=== PATIENT | female | born 1975 | race Two or more races ===

== ENCOUNTER 2016-10-08 02:39 | Emergency (ER) | payer MEDICAID, OTHER ==
[~2016-10-08] VITALS: Ht 152.4 cm; Wt 65.8 kg
[~2016-10-08 02:39] MED LIST: ACETAMINOPHEN-1 EAC1 ORAL; BACTRIM DS TAB1 EAC1 ORAL; BACTRIM-DS1 EA ORAL; CLONIDINE 0.2M0.2 MG PO; CYCLOBENZAPRINE10 MG ORAL; DOXYCYCLINE MO100 MG ORAL; KEFLEX500 MG ORAL; NORCO 5-325 TA1 EACH ORAL; NORCO 5-325 TA1 EACH PO; PERCOCET 5-3251 EACH ORAL; TRAMADOL HCL50 MG ORAL; TYLENOL EXTRA500 MG ORAL
[2016-10-08 03:29] VITALS: BP 200/120
[2016-10-08] MEDS ORDERED: Bactrim DS (160mg/800mg) tab ORAL ONE (04:00)
[2016-10-08] MEDS ORDERED: NORVASC10 MG ORAL (04:00)
[2016-10-08] MEDS ORDERED: BACTRIM DS TAB1 EAC1 ORAL (04:00)
--- NOTE | 2016-10-08 04:00 | Emergency Room Report ---
History of Present Illness General Chief Complaint: Skin Rash/Abscess Source: Patient Present Illness HPI Is a 41-year-old female with history hypertension for which he hasn't taken medicine for over a year. She also has frequent abscess. She presents with 2 day history of right axilla abscess. Painful. 10 out of 10. She been trying to put warm compress to to see if it would burst. No fever chills denies nausea no vomiting. No other complaint. Allergies: Coded Allergies: IBUPROFEN (Verified Allergy, Unknown, HIVES, 10/11/11) Patient History Past Medical History: see triage record, old chart reviewed, HTN Past Surgical History: other Pertinent Family History: none Social History: Denies: smoking Last Menstrual Period: 3 WEEKS AGO Now: No Immunizations: other Reviewed Nursing Documentation: PMH: Agreed, PSxH: Agreed Nursing Documentation-PMH Hx Cardiac Problems: Yes - high cholesterol Hx Hypertension: Yes Hx Cancer: No Hx Gastrointestinal Problems: Yes - Abdominal pain and R/O acute appendicitis Hx Neurological Problems: No Review of Systems Eye: Denies: blurred vision, eye pain ENT: Denies: ear pain, nose congestion, throat swelling Respiratory: Denies: cough, shortness of breath Cardiovascular: Denies: chest pain, palpitations Gastrointestinal: Denies: abdominal pain, diarrhea, nausea, vomiting Musculoskeletal: Denies: back pain, joint pain Skin: Denies: rash Neurological: Denies: headache, numbness Endocrine: Denies: increased thirst, increased urine Hematologic/Lymphatic: Denies: easy bruising All Other Systems: negative except mentioned in HPI Physical Exam Vital Signs Date Time Temp Pulse Resp B/P Pulse Ox O2 Delivery O2 Flow Rate FiO2 10/08/16 03:03 97.7 113 18 182/124 98 Room Air vitals with hypertension Sp02 EP Interpretation: reviewed, normal General Appearance: well appearing, no apparent distress, alert Head: normocephalic, atraumatic Eyes: bilateral eye EOMI, bilateral eye PERRL ENT: hearing grossly normal, normal pharynx Neck: full range of motion, supple, no meningismus Respiratory: chest non-tender, lungs clear, normal breath sounds Cardiovascular #1: regular rate, rhythm, no murmur Gastrointestinal: normal bowel sounds, non tender, no mass, no organomegaly, no bruit, non-distended Musculoskeletal: back normal, gait/station normal, normal range of motion Psychiatric: mood/affect normal Skin: warm/dry, other - 2 cm abscessto the right axilla. Tender to palpation. No erythema. Procedures Incision and Drainage Incision and Drainage : Consent: Verbal Site: Right axilla Blade Size: 11 I & D Procedure: betadine prep, sterile drapes applied, sterile dressing applied Wound Location: upper extremity Anesthesia: 1% Lidocaine Volume Anesthetic (ccs): 2 Patient Tolerated: Well Complications: None Progress Area clean with Betadine. Local anesthetic 1% lidocaine. I made a 2 cm incision. There was small amount of purulent discharge. Loculated area broken up. Wound irrigated. There was small so I did not packed it. Medical Decision Making Diagnostic Impression: Primary Impression: Abscess of right axilla ER Course Issue with abscess of the right axilla. No evidence of deep infection. No evidence of necrotizing fasciitis. This most likely MRSA. We'll discharge home. She felt better. No evidence of endorgan damage. She is asymptomatic from her high blood pressure. Will put her back on medication. Last Vital Signs Date Time Temp Pulse Resp B/P Pulse Ox O2 Delivery O2 Flow Rate FiO2 10/08/16 03:29 97.7 18 200/120 98 Room Air 10/08/16 03:03 113 Status: improved Disposition: HOME, SELF-CARE Condition: Stable Scripts Amlodipine Besylate (Norvasc) 10 Mg Tablet 10 MG ORAL DAILY, #90 TAB Prov: DEVIN MOREIRA M.D. 10/08/16 Trimethoprim/Sulfamethoxazole 160/800* (BACTRIM DS TABLET*) 1 Each Tablet 1 TAB ORAL Q12H, #14 TAB 0 Refills Prov: DEVIN MOREIRA M.D. 10/08/16 Referrals: [facility],REFERRING (PCP) Patient Instructions: Abscess Additional Instructions: Followup with your doctor or the clinic within 7 days for recheck the wound and also your blood pressure. Take your blood pressure medication. Return if symptom worsen. DEVIN MOREIRA M.D. October 08, 2016 04:00
[2016-10-08] MEDS ORDERED: Norco 5mg/325mg tab ORAL ONE ×2 (04:15→04:45)
[2016-10-08] MEDS ORDERED: Norco 5mg/325mg tab ONE (04:19)
[2016-10-08 04:25] VITALS: BP 175/107
[2016-10-08 04:27] VITALS: BP 175/107
== END 2016-10-08 04:30 | disposition home or self-care (01) ==
LOC: EMR 03:39
DX: L02.411 Cutaneous abscess of right axilla (principal); I10 Essential (primary) hypertension; Z88.6 Allergy status to analgesic agent
CPT/HCPCS: 10060

== ENCOUNTER 2016-11-15 11:07 | Emergency (ER) | payer OTHER ==
[~2016-11-15] VITALS: Ht 152.4 cm; Wt 65.8 kg
[~2016-11-15 11:07] MED LIST changes: +NORVASC10 MG ORAL
[2016-11-15 11:14] VITALS: BP 119/74
[2016-11-15] MEDS ORDERED: KEFLEX500 MG ORAL (11:42)
[2016-11-15] MEDS ORDERED: ACETAMINOPHEN-1 EAC1 ORAL (11:42)
[2016-11-15] MEDS ORDERED: BACTRIM DS TAB1 EAC1 ORAL (11:42)
[2016-11-15] MEDS ORDERED: Oxycodone/Acetaminophen 5-325 ORAL ONE (11:45)
[2016-11-15 11:50] VITALS: BP 119/74
--- NOTE | 2016-11-15 11:55 | Emergency Room Report ---
History of Present Illness General Chief Complaint: Skin Rash/Abscess Source: Patient Present Illness HPI [id number] [employer] patient with 5 days "rash" under right armpit. Shaves regularly. Been putting hot compress 3x a day. Denies fever/chills, DM history. Allergies: Coded Allergies: IBUPROFEN (Verified Allergy, Unknown, HIVES, 10/11/11) Patient History Past Medical History: other - Recurrent abscesses Past Surgical History: none Pertinent Family History: none Social History: Denies: alcohol use, drug use, smoking Last Menstrual Period: 11/14/16 Now: No : 1 Para: 1 Immunizations: UTD Reviewed Nursing Documentation: PMH: Agreed, PSxH: Agreed Nursing Documentation-PMH Past Medical History: No Stated History Hx Cardiac Problems: Yes - high cholesterol Hx Hypertension: Yes Hx Cancer: No Hx Gastrointestinal Problems: Yes - Abdominal pain and R/O acute appendicitis Hx Neurological Problems: No Review of Systems All Other Systems: negative except mentioned in HPI Physical Exam Vital Signs Date Time Temp Pulse Resp B/P Pulse Ox O2 Delivery O2 Flow Rate FiO2 11/15/16 11:09 98.8 101 16 117/78 100 Room Air Sp02 EP Interpretation: reviewed, normal General Appearance: normal inspection, well appearing, no apparent distress, alert Head: atraumatic ENT: normal ENT inspection, hearing grossly normal, normal voice Neck: normal inspection, full range of motion, supple, no bony tend Respiratory: normal inspection, lungs clear, normal breath sounds, no respiratory distress, no retraction, no wheezing Cardiovascular #1: regular rate, rhythm, no edema Gastrointestinal: normal inspection, normal bowel sounds, non tender, soft, no guarding, no hernia Genitourinary: no CVA tenderness Musculoskeletal: normal inspection, back normal, normal range of motion, Celestine' s Sign negative Neurologic: normal inspection, alert, oriented x3, responsive, screen making technician III-XII nml as tested, speech normal Psychiatric: normal inspection, judgement/insight normal, mood/affect normal Skin: other - Right armpit: 1cm area of induration surrounded by erythema. No fluctuance. Medical Decision Making Diagnostic Impression: Primary Impression: Cellulitis ER Course Cellulitis, early abscess of right armpit - No drainable area of fluctuance now - Analgesia given in ED - Rx Keflex, Bactrim - Continued warm compress application DC home Last Vital Signs Date Time Temp Pulse Resp B/P Pulse Ox O2 Delivery O2 Flow Rate FiO2 11/15/16 11:14 98.7 103 15 119/74 99 Room Air Status: improved Disposition: HOME, SELF-CARE Condition: Improved Scripts Acetaminophen With Codeine (T#3) (TYLENOL #3 TAB*) Y Tab 1 TAB ORAL Q8H for 7 Days, #30 TAB Prov: FRANK TAPIA M.D. 11/15/16 Cephalexin* (KEFLEX*) 500 Mg Capsule 500 MG ORAL Q6H for 7 Days, #28 CAP 0 Refills Prov: FRANK TAPIA M.D. 11/15/16 Trimethoprim/Sulfamethoxazole 160/800* (BACTRIM DS TABLET*) 1 Each Tablet 1 TAB ORAL Q12H for 7 Days, #14 TAB 0 Refills Prov: FRANK TAPIA M.D. 11/15/16 Patient Instructions: Cellulitis, [id number] Additional Instructions: - Take BOTH antibiotics until finished - Keep applying hot towel compress 3x a day to reduce pain/swelling - Take tylenol #3 for pain FRANK TAPIA M.D. Nov 15, 2016 11:54
== END 2016-11-15 12:38 | disposition home or self-care (01) ==
LOC: EMR 11:25
DX: L03.111 Cellulitis of right axilla (principal); E78.00 Pure hypercholesterolemia, unspecified; I10 Essential (primary) hypertension; Z88.6 Allergy status to analgesic agent; E11.9 Type 2 diabetes mellitus without complications
CPT/HCPCS: 99284

== ENCOUNTER 2017-01-09 18:58 | Emergency (ER) | payer MEDICAID, OTHER ==
[~2017-01-09] VITALS: Ht 152.4 cm; Wt 65.8 kg
[2017-01-09 19:18] VITALS: BP 126/87
--- NOTE | 2017-01-09 19:29 | Emergency Room Report ---
History of Present Illness General Chief Complaint: Skin Rash/Abscess Source: Patient Present Illness HPI 41 YO Female presents to the ED with 10/10 in severity localized pain , swelling , and erythema under the right axilla x 1 week. pt. has hx of abscess in that area. denies fevers or chills. Pt. denies trauma or fall. denies swelling of the arm. Pt. states tetanus is UTD. denies rash or lesions elsewhere. Denies CP , Palpitations, LOC, AMS, dizziness, Changes in Vision, Sensation, paresthesias , or a sudden severe headache. Allergies: Coded Allergies: IBUPROFEN (Verified Allergy, Unknown, HIVES, 10/11/11) Patient History Past Medical History: see triage record Past Surgical History: none Pertinent Family History: none Last Menstrual Period: 2 weeks ago Now: No Reviewed Nursing Documentation: PMH: Agreed, PSxH: Agreed Nursing Documentation-PMH Past Medical History: No History, Except For Hx Cardiac Problems: Yes - high cholesterol Hx Hypertension: Yes Hx Cancer: No Hx Gastrointestinal Problems: No Hx Neurological Problems: No Review of Systems All Other Systems: negative except mentioned in HPI Physical Exam Vital Signs Date Time Temp Pulse Resp B/P (MAP) Pulse Ox O2 Delivery O2 Flow Rate FiO2 01/09/17 19:08 98.2 98 17 126/87 100 Room Air Sp02 EP Interpretation: reviewed, normal General Appearance: no apparent distress, alert, GCS 15, non-toxic Head: normocephalic, atraumatic Eyes: bilateral eye normal inspection, bilateral eye PERRL ENT: hearing grossly normal, normal voice Neck: full range of motion Respiratory: lungs clear, normal breath sounds, speaking full sentences Cardiovascular #1: regular rate, rhythm Musculoskeletal: back normal, gait/station normal, normal range of motion, tender - TTP to the soft tissue of the right axilla. Neurologic: alert, oriented x3, responsive, motor strength/tone normal, sensory intact, speech normal Psychiatric: judgement/insight normal, memory normal, mood/affect normal Skin: normal color, no rash, warm/dry, well hydrated, other - two abscesses in the right axilla with palpable fluctuance noted and surrounding erythema, both are 1cm. not currently draining. Procedures Incision and Drainage Incision and Drainage #1: Consent: Verbal Site: right axilla Blade Size: 11 I & D Procedure: betadine prep Wound Location: axilla - right Wound's Depth, Shape: superficial Wound Length (cm): 1 Wound Explored: contaminated - purulent drainage expressed. Irrigated w/ Saline (ccs): 200 Anesthesia: Lidocaine w/ Epi Volume Anesthetic (ccs): 0 Patient Tolerated: Well Complications: None Incision and Drainage #2: Consent: Verbal Site: right axilla Blade Size: 11 I & D Procedure: betadine prep Wound Location: axilla - right axilla Wound's Depth, Shape: superficial Wound Length (cm): 1 Wound Explored: contaminated - purulent d/c expressed Irrigated w/ Saline (ccs): 200 Anesthesia: Lidocaine w/ Epi Volume Anesthetic (ccs): 0 Patient Tolerated: Well Complications: None Medical Decision Making PA Attestation Dr. nA is my supervising Physician whom patient management has been discussed with. Diagnostic Impression: Primary Impression: Cellulitis of axilla, right Additional Impression: Abscess ER Course 41 YO Female presents to the ED with 10/10 in severity localized pain , swelling , and erythema under the right axilla x 1 week. pt. has hx of abscess in that area. denies fevers or chills. Pt. denies trauma or fall. denies swelling of the arm. Pt. states tetanus is UTD. denies rash or lesions elsewhere. Denies CP , Palpitations, LOC, AMS, dizziness, Changes in Vision, Sensation, paresthesias , or a sudden severe headache. Ddx considered but are not limited to cellulitis, abscess, cystic acne, necrotizing fasciitis, insect bite. Vital signs: are WNL, pt. is afebrile H&PE are most consistent with abscess and cellulitis of the right axilla. ORDERS: none required at this time, the diagnosis is clinical ED INTERVENTIONS: -I & D of both abscesses - Dawson PO -xeroform and sterile dressing is applied by RN. DISCHARGE: At this time pt. is stable for d/c to home. Will provide printed patient care instructions, and any necessary prescriptions. Care plan and follow up instructions have been discussed with the patient prior to discharge. Last Vital Signs Date Time Temp Pulse Resp B/P (MAP) Pulse Ox O2 Delivery O2 Flow Rate FiO2 01/09/17 19:08 98.2 98 17 126/87 100 Room Air Disposition: HOME, SELF-CARE Condition: Stable Scripts Hydrocodone Bit/Acetaminophen 5-325* (NORCO 5-325 TABLET*) 1 Each Tablet 1 TAB ORAL Q8HR Y for For Pain, #4 TAB Prov: Joie Barbour 01/09/17 Bacitracin/Polymyxin B Sulfate (BACITRACIN-POLYMYXIN OINTMENT) 28.35 Gm Oint...g. 1 APPLIC TP BID, #28.3 GM Prov: Joie Barbour 01/09/17 Acetaminophen* (TYLENOL EXTRA STRENGTH*) 500 Mg Tablet 500 MG ORAL Q6H, #20 TAB 0 Refills Prov: Joie Barbour 01/09/17 Trimethoprim/Sulfamethoxazole 160/800* (BACTRIM DS TABLET*) 1 Each Tablet 1 TAB ORAL TWICE A DAY for 7 Days, #14 TAB Prov: Joie Barbour 01/09/17 Cephalexin* (KEFLEX*) 500 Mg Capsule 500 MG ORAL EVERY 12 HOURS for 7 Days, #14 CAP 0 Refills Prov: Joie Barbour 01/09/17 Referrals: [facility]/,REFERRING (PCP) Patient Instructions: Abscess Additional Instructions: Take medications as directed. Follow up with a Primary Care Provider in 3-5 days, even if your symptoms have resolved. --Please review list of primary care clinics, if you do not already have a primary care provider Return sooner to ED if new symptoms occur, or current symptoms become worse. - Please note that this Emergency Department Report was dictated using [employer] of exhibitions and collections technology software, occasionally this can lead to erroneous entry secondary to interpretation by the dictation equipment. Joie Barbour Jan 09, 2017 19:29
[2017-01-09] MEDS ORDERED: Norco 5mg/325mg tab ORAL ONE (19:30)
[2017-01-09] MEDS ORDERED: BACITRACIN-P28.35 GM TP (19:36)
[2017-01-09] MEDS ORDERED: CEPHALEXIN500 MG ORAL (19:36)
[2017-01-09] MEDS ORDERED: BACTRIM DS TAB1 EAC1 ORAL (19:36)
[2017-01-09] MEDS ORDERED: TYLENOL EXTRA500 MG ORAL (19:36)
[2017-01-09] MEDS ORDERED: NORCO 5-325 TA1 EAC1 ORAL (20:00)
[2017-01-09 20:05] VITALS: BP 126/87
== END 2017-01-09 20:18 | disposition home or self-care (01) ==
LOC: EMR 19:25
DX: L03.111 Cellulitis of right axilla (principal); Z88.6 Allergy status to analgesic agent; I10 Essential (primary) hypertension; L02.411 Cutaneous abscess of right axilla
CPT/HCPCS: 10060; 64450; 99284

== ENCOUNTER 2017-04-12 17:02 | Emergency (ER) | payer MEDICAID, OTHER ==
[~2017-04-12] VITALS: Ht 152.4 cm; Wt 75.7 kg
[~2017-04-12 17:02] MED LIST changes: +BACITRACIN-P28.35 GM TP; +CEPHALEXIN500 MG ORAL; +NORCO 5-325 TA1 EAC1 ORAL
[2017-04-12] MEDS ORDERED: NKM (17:16)
[2017-04-12 17:30] VITALS: BP 165/95
--- NOTE | 2017-04-12 17:46 | Emergency Room Report ---
History of Present Illness General Chief Complaint: Abdominal Pain Source: Patient Present Illness HPI 42 YO Female presents to the ED c/o lower abdominal pain, 10/10 in severity, that she describes as feeling bladder fullness with urge to urinate but unable to since last night. pt. reports non bloody diarrhea last night, denies nausea, vomiting, fevers or chills. pt. denies hematuria. Patient denies rashes, recent travel or ill contacts. Denies CP, Palpitations, LOC, AMS, dizziness, Changes in Vision, Sensation, paresthesias, or a sudden severe headache. Allergies: Coded Allergies: IBUPROFEN (Verified Allergy, Unknown, HIVES, 10/11/11) Patient History Past Medical History: see triage record Past Surgical History: none Pertinent Family History: none Last Menstrual Period: 04/09/17 Now: No Immunizations: UTD Reviewed Nursing Documentation: PMH: Agreed, PSxH: Agreed Nursing Documentation-PMH Past Medical History: No History, Except For Hx Cardiac Problems: Yes - high cholesterol Hx Hypertension: Yes Hx Cancer: No Hx Gastrointestinal Problems: No Hx Neurological Problems: No Review of Systems All Other Systems: negative except mentioned in HPI Physical Exam Vital Signs Date Time Temp Pulse Resp B/P (MAP) Pulse Ox O2 Delivery O2 Flow Rate FiO2 04/12/17 17:09 98.2 116 20 176/123 98 Room Air Sp02 EP Interpretation: reviewed, normal General Appearance: no apparent distress, alert, GCS 15, non-toxic Head: normocephalic, atraumatic Eyes: bilateral eye normal inspection, bilateral eye PERRL ENT: hearing grossly normal, normal voice Neck: full range of motion Respiratory: lungs clear, normal breath sounds, speaking full sentences Cardiovascular #1: regular rate, rhythm, tachycardia Gastrointestinal: normal bowel sounds, soft, tenderness - moderate TTP to the lower abdomen primarily midline. abdomen is soft. Rectal: deferred Genitourinary: normal inspection, no CVA tenderness Musculoskeletal: back normal, gait/station normal, normal range of motion Neurologic: alert, oriented x3, responsive, motor strength/tone normal, sensory intact, speech normal Skin: normal color, no rash, warm/dry, well hydrated Medical Decision Making PA Attestation Dr. astudillo is my supervising Physician whom patient management has been discussed with. Diagnostic Impression: Primary Impression: Urinary tract infection Qualified Codes: N30.00 - Acute cystitis without hematuria ER Course 42 YO Female presents to the ED c/o lower abdominal pain, 10/10 in severity, that she describes as feeling bladder fullness with urge to urinate but unable to since last night. pt. reports non bloody diarrhea last night, denies nausea, vomiting, fevers or chills. pt. denies hematuria. Patient denies rashes, recent travel or ill contacts. Denies CP, Palpitations, LOC, AMS, dizziness, Changes in Vision, Sensation, paresthesias, or a sudden severe headache. Ddx considered but are not limited to Diverticulitis, acute appy, diarrhea, UC, PUD, GE, pancreatitis, gallstone Vital signs: are WNL, pt. is afebrile H&PE are most consistent with possible UTI. - Bedside US of the lower abdomen: limited due to large body habitus, however bladder does not appear full/distended. ORDERS: -CBC, CMP, lipase: - UA: evidence of infection with presence of bacteria and inflammatory markers. ED INTERVENTIONS: - 1 Liter NS IV - Morphine IV - Pyridium PO - Macrobid PO DISCHARGE: At this time pt. is stable for d/c to home. Will provide printed patient care instructions, and any necessary prescriptions. Care plan and follow up instructions have been discussed with the patient prior to discharge. Labs Test 04/12/17 18:25 White Blood Count 10.4 K/UL (4.8-10.8) Red Blood Count 4.92 M/UL (4.20-5.40) Hemoglobin 13.4 G/DL (12.0-16.0) Hematocrit 42.7 % (37.0-47.0) Mean Corpuscular Volume 87 FL (80-99) Mean Corpuscular Hemoglobin 27.2 PG (27.0-31.0) Mean Corpuscular Hemoglobin Concent 31.4 G/DL (32.0-36.0) Red Cell Distribution Width 12.6 % (11.6-14.8) Platelet Count 408 K/UL (150-450) Mean Platelet Volume 5.7 FL (6.5-10.1) Neutrophils (%) (Auto) 62.3 % (45.0-75.0) Lymphocytes (%) (Auto) 27.3 % (20.0-45.0) Monocytes (%) (Auto) 7.8 % (1.0-10.0) Eosinophils (%) (Auto) 1.8 % (0.0-3.0) Basophils (%) (Auto) 0.8 % (0.0-2.0) Urine Color [place] Urine Appearance Slightly cloudy Urine pH 5 (4.5-8.0) Urine Specific [place] 1.025 (1.005-1.035) Urine Protein 3+ (NEGATIVE) Urine Glucose (UA) Negative (NEGATIVE) Urine Ketones 1+ (NEGATIVE) Urine Occult Blood 3+ (NEGATIVE) Urine Nitrite Negative (NEGATIVE) Urine Bilirubin Negative (NEGATIVE) Urine Ictotest Negative Urine Urobilinogen Normal MG/DL (0.0-1.0) Urine Leukocyte Esterase 1+ (NEGATIVE) Urine RBC 10-15 /HPF (0 - 2) Urine WBC 5-10 /HPF (0 - 2) Urine Squamous Epithelial Cells Many /LPF (NONE/OCC) Urine Bacteria Moderate /HPF (NONE) Urine Hyaline Casts 0-2 /LPF (NONE) Sodium Level 141 MMOL/L (136-145) Potassium Level 3.6 MMOL/L (3.5-5.1) Chloride Level 104 MMOL/L (98-107) Carbon Dioxide Level 27 MMOL/L (21-32) Anion Gap 10 mmol/L (5-15) Blood Urea Nitrogen 13 mg/dL (7-18) Creatinine 1.1 MG/DL (0.55-1.30) Estimat Glomerular Filtration Rate 54.5 mL/min (>60) Glucose Level 164 MG/DL (74-106) Calcium Level 9.4 MG/DL (8.5-10.1) Total Bilirubin 1.1 MG/DL (0.2-1.0) Direct Bilirubin 0.2 MG/DL (0.0-0.3) Aspartate Amino Transf (AST/SGOT) 18 U/L (15-37) Alanine Aminotransferase (ALT/SGPT) 28 U/L (12-78) Alkaline Phosphatase 2 U/L (46-116) Total Protein 7.7 G/DL (6.4-8.2) Albumin 3.5 G/DL (3.4-5.0) Globulin 4.2 g/dL Albumin/Globulin Ratio 0.8 (1.0-2.7) Lipase 86 U/L (73-393) Last Vital Signs Date Time Temp Pulse Resp B/P (MAP) Pulse Ox O2 Delivery O2 Flow Rate FiO2 04/12/17 17:09 98.2 116 20 176/123 98 Room Air Disposition: HOME, SELF-CARE Condition: Stable Scripts Phenazopyridine Hcl* (PYRIDIUM*) 200 Mg Tablet 200 MG ORAL THREE TIMES A DAY for 3 Days, #9 TAB 0 Refills Prov: Joie Barbour 04/12/17 Nitrofurantoin Monohyd/M-Cryst* (MACROBID 100 MG*) 100 Mg Capsule 100 MG ORAL EVERY 12 HOURS for 5 Days, #10 CAP Prov: Joie Barbour 04/12/17 Patient Instructions: Urinary Tract Infection, [id number] Additional Instructions: Take medications as directed. - Pyridium will cause your urine to change color (Red/[place]), this is a normal side effect of the medication. Follow up with a Primary Care Provider in 3-5 days, even if your symptoms have resolved. --Please review list of primary care clinics, if you do not already have a primary care provider Return sooner to ED if new symptoms occur, or current symptoms become worse. - Please note that this Emergency Department Report was dictated using in[employer] resource technology software, occasionally this can lead to erroneous entry secondary to interpretation by the dictation equipment. Joie Barbour Apr 12, 2017 17:46
[2017-04-12] MEDS ORDERED: Morphine Sulfate 4mg/ml Inj IVP ONE (18:15)
[2017-04-12 19:00] VITALS: BP 147/79
[2017-04-12 19:01] LABS: APPEARANCE,URINE SLIGHTLY CLOUDY; KETONES,URINE 1+ (NEGATIVE); LEUKOCYTE ESTERASE ,URINE 1+ (NEGATIVE); NITRITE,URINE NEGATIVE (NEGATIVE); PH,URINE 5 (4.5-8.0); PROTEIN,URINE 3+ (NEGATIVE); UROBILINOGEN,URINE NORMAL MG/DL (0.0-1.0)
[2017-04-12 19:04] LABS: BASOPHILS % (AUTO) 0.8 % (0.0-2.0); EOSINOPHILS % (AUTO) 1.8 % (0.0-3.0); LYMPHOCYTES % (AUTO) 27.3 % (20.0-45.0); MEAN CORPUSCULAR HEMOGLOBIN 27.2 PG (27.0-31.0); MEAN CORPUSCULAR HGB CONC 31.4 G/DL (32.0-36.0); MEAN CORPUSCULAR VOLUME 87 FL (80-99); MEAN PLATELET VOLUME 5.7 FL (6.5-10.1); MONOCYTES % (AUTO) 7.8 % (1.0-10.0); NEUTROPHILS % (AUTO) 62.3 % (45.0-75.0); PLATELET COUNT 408 K/UL (150-450); RED BLOOD COUNT 4.92 M/UL (4.20-5.40); RED CELL DISTRIBUTION WIDTH 12.6 % (11.6-14.8); WHITE BLOOD COUNT 10.4 K/UL (4.8-10.8)
[2017-04-12 19:12] LABS: BACTERIA,URINE MODERATE /HPF; HYALINE CASTS, URINE 0-2 /LPF; ICTOTEST NEGATIVE; SQUAMOUS EPITHELIAL CELL,UR MANY /LPF (NONE/OCC)
[2017-04-12 19:14] LABS: ANION GAP 10 mmol/L (5-15); CALCIUM 9.4 MG/DL (8.5-10.1); CARBON DIOXIDE 27 MMOL/L (21-32); CHLORIDE 104 MMOL/L (98-107); CREATININE 1.1 MG/DL (0.55-1.30); GLOMERULAR FILTRATION RATE 54.5 mL/min (>60); POTASSIUM 3.6 MMOL/L (3.5-5.1); SODIUM 141 MMOL/L (136-145)
[2017-04-12 19:26] LABS: ALANINE AMINOTRANSFERASE 28 U/L (12-78); ALBUMIN/GLOBULIN RATIO 0.8 (1.0-2.7); ASPARTATE AMINO TRANSFERASE 18 U/L (15-37); TOTAL PROTEIN 7.7 G/DL (6.4-8.2)
[2017-04-12 19:30] LABS: BILIRUBIN,DIRECT 0.2 MG/DL (0.0-0.3)
[2017-04-12] MEDS ORDERED: Phenazopyridine 200mg tab ORAL ONE (19:45)
[2017-04-12] MEDS ORDERED: NITROFURANTOIN100 M2 ORAL (19:49)
[2017-04-12] MEDS ORDERED: PHENAZOPYRIDIN200 MG ORAL (19:49)
[2017-04-13 01:35] VITALS: BP 0/0
== END 2017-04-12 21:00 | disposition home or self-care (01) ==
LOC: EMR 20:08
DX: N39.0 Urinary tract infection, site not specified (principal); I10 Essential (primary) hypertension; Z88.6 Allergy status to analgesic agent
CPT/HCPCS: 36415; 80053; 81003; 82248; 83690; 85025; 87086; 87181; 96361; 96374; 99284; J2270

== ENCOUNTER 2017-06-01 12:19 | Emergency (ER) | payer MEDICAID ==
[~2017-06-01] VITALS: Ht 152.4 cm; Wt 70.3 kg
[~2017-06-01 12:19] MED LIST changes: +NITROFURANTOIN100 M2 ORAL; +NKM; +PHENAZOPYRIDIN200 MG ORAL
[2017-06-01] MEDS ORDERED: HYDROcodone/Acetamin 7.5/325 tab ORAL ONE (13:45)
--- NOTE | 2017-06-01 13:55 | Emergency Room Report ---
History of Present Illness General Chief Complaint: Female Urogenital Problems Source: Patient Present Illness HPI 42-year-old female presents to the emergency department complaining of 6/10 in severity tenderness, swelling, erythema to the left external vaginal labia progressive times one week. Patient reports she wished to have ingrown hair. Patient denies swollen tender lymph nodes, vaginal discharge, blisters or vesicles.Denies lesions/rashes elsewhere on the body. Denies new medications or body washes or creams. Denies swelling of the lips, tongue , throat or airway. Denies wheezing, or shortness of breath. Denies recent travel, recent illness or ill contacts. denies blisters, oral lesions, or sloughing of the skin. Allergies: Coded Allergies: IBUPROFEN (Verified Allergy, Unknown, HIVES, 10/11/11) Patient History Past Medical History: see triage record Past Surgical History: none Pertinent Family History: none Now: No Reviewed Nursing Documentation: PMH: Agreed, PSxH: Agreed Nursing Documentation-PMH Past Medical History: No Stated History Hx Cardiac Problems: Yes - high cholesterol Hx Hypertension: Yes Hx Cancer: No Hx Gastrointestinal Problems: No Hx Neurological Problems: No Review of Systems All Other Systems: negative except mentioned in HPI Physical Exam Vital Signs Date Time Temp Pulse Resp B/P (MAP) Pulse Ox O2 Delivery O2 Flow Rate FiO2 06/01/17 12:27 98.4 104 18 140/70 98 Room Air Sp02 EP Interpretation: reviewed, normal General Appearance: no apparent distress, alert, GCS 15, non-toxic Head: normocephalic, atraumatic Eyes: bilateral eye normal inspection, bilateral eye PERRL ENT: hearing grossly normal, normal voice Neck: full range of motion Respiratory: lungs clear, normal breath sounds, speaking full sentences Cardiovascular #1: regular rate, rhythm Gastrointestinal: non tender, soft Rectal: deferred Genitourinary: normal inspection, other - 2 cm abscess to left external vaginal labia, erythema, fluctuance palpated. tenderness. no blisters or vesicles. Musculoskeletal: back normal, gait/station normal, normal range of motion, non- tender Neurologic: alert, oriented x3, responsive, motor strength/tone normal, sensory intact, speech normal, grossly normal Psychiatric: judgement/insight normal Skin: normal color, warm/dry, well hydrated, other - 2 cm abscess to left external vaginal labia, erythema, fluctuance palpated. tenderness. no blisters or vesicles. Lymphatic: no adenopathy Procedures Incision and Drainage Incision and Drainage : Consent: Verbal Site: LEft vainal labia Blade Size: 11 I & D Procedure: betadine prep Wound Location: other - Left external vaginal labia Wound's Depth, Shape: superficial Wound Length (cm): 1 Wound Explored: contaminated - mild purulent d/c and blood expressed. Anesthesia: 1% Lidocaine Volume Anesthetic (ccs): 2 Splint Applied?: No Sling Applied?: No Patient Tolerated: Well Complications: None Medical Decision Making PA Attestation Dr. Schaffer is my supervising Physician whom patient management has been discussed with. Diagnostic Impression: Primary Impression: Abscess ER Course 42-year-old female presents to the emergency department complaining of 6/10 in severity tenderness, swelling, erythema to the left external vaginal labia progressive times one week. Patient reports she wished to have ingrown hair. Patient denies swollen tender lymph nodes, vaginal discharge, blisters or vesicles.Denies lesions/rashes elsewhere on the body. Denies new medications or body washes or creams. Denies swelling of the lips, tongue , throat or airway. Denies wheezing, or shortness of breath. Denies recent travel, recent illness or ill contacts. denies blisters, oral lesions, or sloughing of the skin. Ddx considered but are not limited to cellulitis, abscess, cystic acne, necrotizing fasciitis, insect bite. Vital signs: are WNL, pt. is afebrile H&PE are most consistent with abscess. ORDERS: none required at this time, the diagnosis is clinical ED INTERVENTIONS: -I & D. -Bailey PO DISCHARGE: At this time pt. is stable for d/c to home. Will provide printed patient care instructions, and any necessary prescriptions. Care plan and follow up instructions have been discussed with the patient prior to discharge. Last Vital Signs Date Time Temp Pulse Resp B/P (MAP) Pulse Ox O2 Delivery O2 Flow Rate FiO2 06/01/17 12:27 98.4 104 18 140/70 98 Room Air Disposition: HOME, SELF-CARE Condition: Stable Scripts Mupirocin* (MUPIROCIN*) 22 Gm Oint...g. 1 APPLIC TOPIC THREE TIMES A DAY, #22 GM Prov: Joie Barbour 06/01/17 Hydrocodone Bit/Acetaminophen 5-325* (NORCO 5-325 TABLET*) 1 Each Tablet 1 TAB ORAL Q8HR, #6 TAB Prov: Joie Barbour 06/01/17 Acetaminophen* (TYLENOL EXTRA STRENGTH*) 500 Mg Tablet 500 MG ORAL Q6H Y for Mild Pain/Temp > 100.5, #20 TAB 0 Refills Prov: Joie Barbour 06/01/17 Doxycycline Hyclate* (VIBRAMYCIN*) 100 Mg Capsule 100 MG ORAL EVERY 12 HOURS for 7 Days, #14 CAP 0 Refills Prov: Joie Barbour 06/01/17 Referrals: [facility],REFERRING (PCP) Patient Instructions: Abscess, [id number] Additional Instructions: Take medications as directed. Follow up with a Primary Care Provider in 3-5 days, even if your symptoms have resolved. --Please review list of primary care clinics, if you do not already have a primary care provider Return sooner to ED if new symptoms occur, or current symptoms become worse. - Please note that this Emergency Department Report was dictated using [employer] engineer technology software, occasionally this can lead to erroneous entry secondary to interpretation by the dictation equipment. Joie Barbour Jun 01, 2017 13:55
[2017-06-01] MEDS ORDERED: VIBRAMYCIN100 MG ORAL (13:58)
[2017-06-01] MEDS ORDERED: TYLENOL EXTRA500 MG ORAL (13:58)
[2017-06-01] MEDS ORDERED: NORCO 5-325 TA1 EAC1 ORAL (13:58)
[2017-06-01] MEDS ORDERED: MUPIROCIN22 GM TOPIC (13:58)
[2017-06-01 14:30] VITALS: BP 138/72
== END 2017-06-01 14:30 | disposition home or self-care (01) ==
LOC: EMR 12:48
DX: N76.4 Abscess of vulva (principal); I10 Essential (primary) hypertension; E78.00 Pure hypercholesterolemia, unspecified; Z88.6 Allergy status to analgesic agent
CPT/HCPCS: 10060; 99284

== ENCOUNTER 2017-12-13 09:30 | Emergency (ER) | payer MEDICAID ==
[~2017-12-13] VITALS: Ht 152.4 cm; Wt 74.8 kg
[~2017-12-13 09:30] MED LIST changes: +MUPIROCIN22 GM TOPIC; +VIBRAMYCIN100 MG ORAL
--- NOTE | 2017-12-13 09:50 | Emergency Room Report ---
History of Present Illness General Chief Complaint: Hypertension Source: Patient Present Illness HPI Patient is a 42-year-old female who presented after increased difficulty breathing. Patient reports having increased difficulty breathing since last night. Patient reports having prior history of hypertension for which she takes clonidine. She denies any other medication use. Patient reports being a smoker. She reports having the increased difficulty breathing which is worse with supine position. She reports having a nonproductive cough. The patient denies any recent cigarette smoking or recent drug use. She reports having taken her clonidine this morning. Allergies: Coded Allergies: IBUPROFEN (Verified Allergy, Unknown, HIVES, 10/11/11) Patient History Now: No Reviewed Nursing Documentation: PMH: Agreed; PSxH: Agreed Nursing Documentation-PMH Past Medical History: No History, Except For Hx Cardiac Problems: Yes - high cholesterol Hx Hypertension: Yes Hx Cancer: No Hx Gastrointestinal Problems: No Hx Neurological Problems: No Review of Systems All Other Systems: negative except mentioned in HPI Physical Exam Vital Signs Date Time Temp Pulse Resp B/P (MAP) Pulse Ox O2 Delivery O2 Flow Rate FiO2 12/13/17 09:33 98.3 86 20 212/146 97 98.2 Sp02 EP Interpretation: reviewed, normal General Appearance: normal inspection, no apparent distress, alert, GCS 15, mild distress Head: atraumatic ENT: normal ENT inspection, hearing grossly normal, normal voice Neck: normal inspection, full range of motion, supple, no bony tend Respiratory: normal inspection, lungs clear, normal breath sounds, no respiratory distress, no retraction, no wheezing Cardiovascular #1: regular rate, rhythm, no edema Gastrointestinal: normal inspection, normal bowel sounds, non tender, soft, no guarding, no hernia Genitourinary: no CVA tenderness Musculoskeletal: normal inspection, back normal, normal range of motion Neurologic: normal inspection, alert, oriented x3, responsive, speech normal, other - psychomotor agitation Psychiatric: normal inspection, judgement/insight normal, mood/affect normal Skin: normal inspection, normal color, no rash Medical Decision Making Diagnostic Impression: Primary Impression: Uncontrolled hypertension Additional Impression: Substance abuse ER Course Patient presented for shortness of breath. Differential included but was not limited to anemia, pneumonia, pneumothorax, myocardial infarction, pericardial effusion, congestive heart failure, acidosis. Because of complexity of patient' s case laboratory testing and imaging studies were ordered. The the patient was noted to have elevated blood pressure. The patient given clonidine by mouth with improvement in her blood pressure. She was given Ativan for agitation which is likely due to amphetamine use. The patient was noted to have some mild wheezing was given breathing treatment.EKG interpreted by me showed normal sinus rhythm with a rate of [address] or T wave changes. The patient noted to have some right axis deviation. The laboratory testing showed normal white blood count as well as normal electrolyte panel without evidence of renal failure. Urine drug screen was positive for marijuana as well as amphetamine. The patient was noted to have improvement in her symptoms after IV Ativan breathing treatment. The patient blood pressure noted be markedly improved. Patient was to stop using amphetamine as well as to the continued stop smoking.The patient is advised to follow up with primary care doctor in 1-2 days. Patient is advised to return if any worsening condition or if any changes in status that are concerning. This report is dictated with [employer] elevator operator service software which may occasionally lead to discrepancies related to use of this software. Labs Test 12/13/17 10:00 White Blood Count 9.3 K/UL (4.8-10.8) Red Blood Count 5.82 M/UL (4.20-5.40) Hemoglobin 15.8 G/DL (12.0-16.0) Hematocrit 48.8 % (37.0-47.0) Mean Corpuscular Volume 84 FL (80-99) Mean Corpuscular Hemoglobin 27.1 PG (27.0-31.0) Mean Corpuscular Hemoglobin Concent 32.3 G/DL (32.0-36.0) Red Cell Distribution Width 12.7 % (11.6-14.8) Platelet Count 383 K/UL (150-450) Mean Platelet Volume 6.6 FL (6.5-10.1) Neutrophils (%) (Auto) 62.3 % (45.0-75.0) Lymphocytes (%) (Auto) 24.7 % (20.0-45.0) Monocytes (%) (Auto) 8.4 % (1.0-10.0) Eosinophils (%) (Auto) 3.1 % (0.0-3.0) Basophils (%) (Auto) 1.5 % (0.0-2.0) Prothrombin Time 10.0 SEC (9.30-11.50) Prothromb Time International Ratio 0.9 (0.9-1.1) Activated Partial Thromboplast Time 24 SEC (23-33) Urine Color Pale yellow Urine Appearance Clear Urine pH 7 (4.5-8.0) Urine Specific [place] 1.005 (1.005-1.035) Urine Protein 1+ (NEGATIVE) Urine Glucose (UA) Negative (NEGATIVE) Urine Ketones Negative (NEGATIVE) Urine Occult Blood Negative (NEGATIVE) Urine Nitrite Negative (NEGATIVE) Urine Bilirubin Negative (NEGATIVE) Urine Urobilinogen Normal MG/DL (0.0-1.0) Urine Leukocyte Esterase Negative (NEGATIVE) Urine RBC 0 /HPF (0 - 2) Urine WBC 0-2 /HPF (0 - 2) Urine Squamous Epithelial Cells Occasional /LPF Urine Bacteria Occasional /HPF (NONE) Urine HCG, Qualitative Negative (NEGATIVE) Sodium Level 134 MMOL/L (136-145) Potassium Level 4.5 MMOL/L (3.5-5.1) Chloride Level 103 MMOL/L (98-107) Carbon Dioxide Level 21 MMOL/L (21-32) Anion Gap 10 mmol/L (5-15) Blood Urea Nitrogen 10 mg/dL (7-18) Creatinine 0.5 MG/DL (0.55-1.30) Estimat Glomerular Filtration Rate > 60 mL/min (>60) Glucose Level 138 MG/DL (74-106) Calcium Level 8.5 MG/DL (8.5-10.1) Urine Opiates Screen Negative (NEGATIVE) Urine Barbiturates Screen Negative (NEGATIVE) Phencyclidine (PCP) Screen Negative (NEGATIVE) Urine Amphetamines Screen Positive (NEGATIVE) Urine Benzodiazepines Screen Negative (NEGATIVE) Urine Cocaine Screen Negative (NEGATIVE) Urine Marijuana (THC) Screen Positive (NEGATIVE) EKG Diagnostic Results Rate: normal - 80 Rhythm: NSR - 80 ST Segments: no acute changes Rhythm Strip Diag. Results EP Interpretation: yes Rhythm: NSR, no PVC's, no ectopy Last Vital Signs Date Time Temp Pulse Resp B/P (MAP) Pulse Ox O2 Delivery O2 Flow Rate FiO2 12/13/17 09:33 98.3 86 20 212/146 97 98.2 Status: improved Disposition: HOME, SELF-CARE Condition: Stable Scripts Albuterol Sulfate* (ALBUTEROL SULFATE MDI*) 8.5 Gm Hfa.aer.ad 2 PUFF INH Q4H PRN for cough/wheezing, #1 EA 0 Refills Prov: Grady Olsen MD 12/13/17 Grady Olsen MD Dec 13, 2017 09:50
[2017-12-13] MEDS ORDERED: LORazepam Inj 2mg/ml 1ml IV ONE (10:00)
[2017-12-13 10:04] VITALS: BP 212/146
[2017-12-13 10:14] LABS: APPEARANCE,URINE CLEAR; BASOPHILS % (AUTO) 1.5 % (0.0-2.0); BILIRUBIN, URINE NEGATIVE (NEGATIVE); COLOR,URINE PALE YELLOW; EOSINOPHILS % (AUTO) 3.1 % (0.0-3.0); GLUCOSE, URINE (UA) NEGATIVE (NEGATIVE); HEMATOCRIT 48.8 % (37.0-47.0); HEMOGLOBIN 15.8 G/DL (12.0-16.0); KETONES,URINE NEGATIVE (NEGATIVE); LEUKOCYTE ESTERASE ,URINE NEGATIVE (NEGATIVE); LYMPHOCYTES % (AUTO) 24.7 % (20.0-45.0); MEAN CORPUSCULAR VOLUME 84 FL (80-99); MONOCYTES % (AUTO) 8.4 % (1.0-10.0); NEUTROPHILS % (AUTO) 62.3 % (45.0-75.0); NITRITE,URINE NEGATIVE (NEGATIVE); PH,URINE 7 (4.5-8.0); PLATELET COUNT 383 K/UL (150-450); PROTEIN,URINE 1+ (NEGATIVE); RED BLOOD COUNT 5.82 M/UL (4.20-5.40); RED CELL DISTRIBUTION WIDTH 12.7 % (11.6-14.8); UROBILINOGEN,URINE NORMAL MG/DL (0.0-1.0); WHITE BLOOD COUNT 9.3 K/UL (4.8-10.8)
[2017-12-13 10:24] LABS: INR 0.9 (0.9-1.1)
[2017-12-13 10:25] LABS: ANION GAP 10 mmol/L (5-15); BLOOD UREA NITROGEN 10 mg/dL (7-18); CALCIUM 8.5 MG/DL (8.5-10.1); CARBON DIOXIDE 21 MMOL/L (21-32); CHLORIDE 103 MMOL/L (98-107); CREATININE 0.5 MG/DL (0.55-1.30); POTASSIUM 4.5 MMOL/L (3.5-5.1); SODIUM 134 MMOL/L (136-145)
[2017-12-13] MEDS ORDERED: Albuterol/Ipratropium 3ml neb HHN ONE (10:30)
[2017-12-13] MEDS ORDERED: ALBUTEROL SULF8.5 GM INH ×2 (10:34→11:00)
[2017-12-13 10:44] LABS: ALANINE AMINOTRANSFERASE 27 U/L (12-78); ALBUMIN 3.4 G/DL (3.4-5.0); ASPARTATE AMINO TRANSFERASE 31 U/L (15-37)
[2017-12-13 11:01] VITALS: BP 175/107
--- NOTE | 2017-12-13 11:03 | Diagnostic Imaging Report ---
EXAM: XR Chest, 1 View CLINICAL HISTORY: CP TECHNIQUE: Frontal view of the chest. COMPARISON: Chest x-ray 12/09/10 FINDINGS: Lungs: Unremarkable. No consolidation. Pleural space: Unremarkable. No pneumothorax. Heart: Cardiomegaly. Mediastinum: Unremarkable. Bones/joints: Unremarkable. IMPRESSION: 1. Cardiomegaly. 2. No acute process.
[2017-12-13 11:09] VITALS: BP 175/107
[2017-12-13 11:13] LABS: ALKALINE PHOSPHATASE 120 U/L (46-116); BILIRUBIN,TOTAL 0.5 MG/DL (0.2-1.0); CKMB 1.9 NG/ML (0.0-3.6); CREATINE KINASE 198 U/L (26-308)
--- NOTE | 2017-12-14 19:33 | Cardiology Report ---
APPROVED REPORT EKG Measurement Heart [id number] Normal sinus rhythm Right superior axis deviation Abnormal ECG
== END 2017-12-13 11:12 | disposition home or self-care (01) ==
LOC: EMR 09:52
DX: I10 Essential (primary) hypertension (principal); F19.10 Other psychoactive substance abuse, uncomplicated; R06.00 Dyspnea, unspecified; Z88.6 Allergy status to analgesic agent; F17.200 Nicotine dependence, unspecified, uncomplicated; Z79.899 Other long term (current) drug therapy
CPT/HCPCS: 36415; 71045; 80053; 80307; 81003; 81025; 82550; 82553; 83880; 84484; 85025; 85610; 85730; 86140; 93005; 94640; 94664; 96374; 99284; J7620

== ENCOUNTER 2018-03-04 03:20 | Emergency (ER) | payer MEDICAID ==
[~2018-03-04] VITALS: Ht 152.4 cm; Wt 65.8 kg
[~2018-03-04 03:20] MED LIST changes: +ALBUTEROL SULF8.5 GM INH
--- NOTE | 2018-03-04 03:53 | Emergency Room Report ---
History of Present Illness General Chief Complaint: General Complaint Source: Patient Present Illness HPI Is a 43-year-old female with history of hypertension. She presents with chief complaint of "I don't feel good." Onset for about a day. She has subjective fever and chills. No nausea no vomiting. No coughing congestion. Denies any other complaint. No abdominal pain. No urinary complaint. Similar symptom in November when she was here. She was told that she had an acute attack. Denies any other complaint. In November she was positive for methamphetamine. She said she does not use it was at a [employer] over the weekend. Allergies: Coded Allergies: IBUPROFEN (Verified Allergy, Unknown, HIVES, 10/11/11) Patient History Past Medical History: see triage record, old chart reviewed, HTN Past Surgical History: none Pertinent Family History: none Social History: Reports: smoking Last Menstrual Period: 02/27/18 Now: No : 1 Para: 1 Immunizations: other Reviewed Nursing Documentation: PMH: Agreed; PSxH: Agreed Nursing Documentation-PMH Past Medical History: No History, Except For Hx Cardiac Problems: Yes - high cholesterol Hx Hypertension: Yes Hx Cancer: No Hx Gastrointestinal Problems: No Hx Neurological Problems: No Review of Systems Constitutional: Reports: malaise Eye: Denies: eye pain, blurred vision ENT: Denies: ear pain, nose congestion, throat swelling Respiratory: Denies: cough, shortness of breath Cardiovascular: Denies: chest pain, palpitations Gastrointestinal: Denies: abdominal pain, diarrhea, nausea, vomiting Musculoskeletal: Denies: back pain, joint pain Skin: Denies: rash Neurological: Denies: headache, numbness Endocrine: Denies: increased thirst, increased urine Hematologic/Lymphatic: Denies: easy bruising All Other Systems: negative except mentioned in HPI Physical Exam Vital Signs Date Time Temp Pulse Resp B/P (MAP) Pulse Ox O2 Delivery O2 Flow Rate FiO2 03/04/18 03:24 98.2 81 20 197/125 97 Room Air 98.2 vitals with high blood pressure Sp02 EP Interpretation: reviewed, normal General Appearance: well appearing, no apparent distress, alert Head: normocephalic, atraumatic Eyes: bilateral eye PERRL, bilateral eye EOMI ENT: hearing grossly normal, normal pharynx Neck: full range of motion, supple, no meningismus Respiratory: chest non-tender, lungs clear, normal breath sounds Cardiovascular #1: regular rate, rhythm, no murmur Gastrointestinal: normal bowel sounds, non tender, no mass, no organomegaly, no bruit, non-distended Musculoskeletal: back normal, gait/station normal, normal range of motion Psychiatric: mood/affect normal Skin: warm/dry Medical Decision Making Diagnostic Impression: Primary Impression: Methamphetamine abuse Additional Impression: Hypertensive urgency ER Course Patient presents with high blood pressure secondary to probably noncompliance and drug abuse. Dose of clonidine given here. We'll switch her clonidine to something more stable. No evidence of endorgan damage. We'll discharge home. Lab Results Impression labs unremarkable Rhythm Strip Diag. Results Rhythm Strip Time: 04:49 EP Interpretation: yes Rate: 100 Rhythm: NSR, no PVC's, no ectopy Last Vital Signs Date Time Temp Pulse Resp B/P (MAP) Pulse Ox O2 Delivery O2 Flow Rate FiO2 03/04/18 03:24 98.2 81 20 197/125 97 Room Air 98.2 Status: improved Disposition: HOME, SELF-CARE Condition: Stable Scripts Amlodipine Besylate (Norvasc) 10 Mg Tablet 10 MG ORAL DAILY, #30 TAB Prov: Myles Reddy MD 03/04/18 Additional Instructions: Stop using drugs. Take your blood pressure medication. Follow-up with your doctor in 7 days. Go to rehabilitation. Return if worse. Myles Reddy MD Mar 04, 2018 03:53
[2018-03-04 04:02] LABS: BASOPHILS % (AUTO) 1.1 % (0.0-2.0); EOSINOPHILS % (AUTO) 3.6 % (0.0-3.0); HEMATOCRIT 44.4 % (37.0-47.0); HEMOGLOBIN 15.1 G/DL (12.0-16.0); LYMPHOCYTES % (AUTO) 33.2 % (20.0-45.0); MEAN CORPUSCULAR VOLUME 82 FL (80-99); MONOCYTES % (AUTO) 8.9 % (1.0-10.0); NEUTROPHILS % (AUTO) 53.2 % (45.0-75.0); PLATELET COUNT 348 K/UL (150-450); RED CELL DISTRIBUTION WIDTH 11.5 % (11.6-14.8); WHITE BLOOD COUNT 6.6 K/UL (4.8-10.8)
[2018-03-04 04:05] LABS: APPEARANCE,URINE CLEAR; BILIRUBIN, URINE NEGATIVE (NEGATIVE); COLOR,URINE PALE YELLOW; GLUCOSE, URINE (UA) 2+ (NEGATIVE); KETONES,URINE NEGATIVE (NEGATIVE); LEUKOCYTE ESTERASE ,URINE NEGATIVE (NEGATIVE); NITRITE,URINE NEGATIVE (NEGATIVE); PH,URINE 8 (4.5-8.0); PROTEIN,URINE NEGATIVE (NEGATIVE); UROBILINOGEN,URINE NORMAL MG/DL (0.0-1.0)
[2018-03-04 04:12] VITALS: BP 152/109
[2018-03-04 04:13] LABS: ANION GAP 9 mmol/L (5-15); BLOOD UREA NITROGEN 14 mg/dL (7-18); CALCIUM 8.4 MG/DL (8.5-10.1); CARBON DIOXIDE 26 MMOL/L (21-32); CHLORIDE 104 MMOL/L (98-107); CREATININE 0.8 MG/DL (0.55-1.30); POTASSIUM 3.6 MMOL/L (3.5-5.1); SODIUM 139 MMOL/L (136-145)
[2018-03-04 04:45] VITALS: BP 148/124
[2018-03-04] MEDS ORDERED: NORVASC10 MG ORAL (04:49)
[2018-03-04 05:01] VITALS: BP 152/109
== END 2018-03-04 05:10 | disposition home or self-care (01) ==
LOC: EMR 03:59
DX: F15.10 Other stimulant abuse, uncomplicated (principal); I16.0 Hypertensive urgency; I10 Essential (primary) hypertension; E78.00 Pure hypercholesterolemia, unspecified; F17.200 Nicotine dependence, unspecified, uncomplicated
CPT/HCPCS: 36415; 80048; 80307; 81001; 81025; 85025; 99284

== ENCOUNTER 2018-12-22 22:07 | Emergency (ER) | payer MEDICAID ==
[~2018-12-22] VITALS: Ht 152.4 cm; Wt 72.6 kg
[2018-12-22 22:25] VITALS: BP 162/101
--- NOTE | 2018-12-22 22:25 | NUR ---
ED Nurse Note: PT WALKED IN C/O SKIN RASH ON LEFT SIDE AND PAIN X 1 WK.
--- NOTE | 2018-12-22 22:53 | Emergency Room Report ---
History of Present Illness General Chief Complaint: Skin Rash/Abscess Source: Patient Present Illness HPI Is a 43-year-old female presents after increased left-sided flank discomfort as well as skin rash. She reports having gradual onset of symptoms. She reports having pain to the left flank. She denies any vomiting. She reports having initially had a small area that looked like a pimple which had increased in size subsequently. Patient attempted to squeeze this incessantly became more problematic. She denies prior history of diabetes. She reports having moderate pain. Pain is constant in nature. She denies any change in bowel habits.She denies being . Allergies: Coded Allergies: IBUPROFEN (Verified Allergy, Unknown, HIVES, 10/11/11) Patient History Past Medical History: see triage record Reviewed Nursing Documentation: PMH: Agreed; PSxH: Agreed Nursing Documentation-PMH Past Medical History: No History, Except For Hx Cardiac Problems: Yes - high cholesterol Hx Hypertension: Yes Hx Cancer: No Hx Gastrointestinal Problems: No Hx Neurological Problems: No Review of Systems All Other Systems: negative except mentioned in HPI Physical Exam Vital Signs Date Time Temp Pulse Resp B/P (MAP) Pulse Ox O2 Delivery O2 Flow Rate FiO2 12/22/18 22:16 98.4 98 18 162/101 (121) 95 Room Air Sp02 EP Interpretation: reviewed, normal General Appearance: normal inspection, well appearing, no apparent distress, alert, GCS 15, non-toxic Head: atraumatic ENT: normal ENT inspection, hearing grossly normal, normal voice Neck: normal inspection, full range of motion, supple, no bony tend Respiratory: normal inspection, lungs clear, normal breath sounds, no respiratory distress, no retraction, no wheezing Cardiovascular #1: regular rate, rhythm, no edema Gastrointestinal: normal inspection, normal bowel sounds, non tender, soft, no guarding, no hernia Genitourinary: no CVA tenderness Musculoskeletal: normal inspection, back normal, normal range of motion Neurologic: normal inspection, alert, responsive, speech normal Psychiatric: normal inspection, judgement/insight normal, mood/affect normal Skin: pallor - left side erythema, patchy with central area of induration Procedures Incision and Drainage Incision and Drainage : Consent: Verbal Site: abdominal wall Blade Size: 15 I & D Procedure: betadine prep, sterile drapes applied, sterile dressing applied, gauze wick placed Wound Location: abdomen Wound's Depth, Shape: superficial Wound Length (cm): 1 Wound Explored: clean Anesthesia: Lidocaine w/ Epi Sling Applied?: Yes Patient Tolerated: Well Complications: None Medical Decision Making Diagnostic Impression: Primary Impression: Abscess Additional Impression: Cellulitis ER Course Patient presented for skin rash. Differential diagnosis include was not limited to abscess, cellulitis, necrotizing fasciitis among others. Patient has a benign exam and does not appear to require any further imaging or laboratory testing at this time. patient was noted to have what appears to be an abdominal wall abscess. Patient underwent incision and drainage with small amount of purulent material. The patient tolerated this well. Laboratory testing was unremarkable. Patient was noted to have improvement in her symptoms. Patient appears to be stable for discharge. Patient advised to return if worse. Labs Test 12/22/18 22:59 12/22/18 23:32 White Blood Count 9.1 K/UL (4.8-10.8) Red Blood Count 5.14 M/UL (4.20-5.40) Hemoglobin 14.8 G/DL (12.0-16.0) Hematocrit 44.4 % (37.0-47.0) Mean Corpuscular Volume 86 FL (80-99) Mean Corpuscular Hemoglobin 28.8 PG (27.0-31.0) Mean Corpuscular Hemoglobin Concent 33.4 G/DL (32.0-36.0) Red Cell Distribution Width 12.9 % (11.6-14.8) Platelet Count 376 K/UL (150-450) Mean Platelet Volume 5.9 FL (6.5-10.1) Neutrophils (%) (Auto) 61.6 % (45.0-75.0) Lymphocytes (%) (Auto) 25.9 % (20.0-45.0) Monocytes (%) (Auto) 9.1 % (1.0-10.0) Eosinophils (%) (Auto) 2.0 % (0.0-3.0) Basophils (%) (Auto) 1.5 % (0.0-2.0) Sodium Level 138 MMOL/L (136-145) Potassium Level 3.4 MMOL/L (3.5-5.1) Chloride Level 104 MMOL/L (98-107) Carbon Dioxide Level 28 MMOL/L (21-32) Anion Gap 6 mmol/L (5-15) Blood Urea Nitrogen 9 mg/dL (7-18) Creatinine 0.6 MG/DL (0.55-1.30) Estimat Glomerular Filtration Rate > 60 mL/min (>60) Glucose Level 179 MG/DL (74-106) Calcium Level 9.0 MG/DL (8.5-10.1) Total Bilirubin 0.4 MG/DL (0.2-1.0) Aspartate Amino Transf (AST/SGOT) 27 U/L (15-37) Alanine Aminotransferase (ALT/SGPT) 47 U/L (12-78) Alkaline Phosphatase 142 U/L (46-116) Total Protein 7.4 G/DL (6.4-8.2) Albumin 3.2 G/DL (3.4-5.0) Globulin 4.2 g/dL Albumin/Globulin Ratio 0.8 (1.0-2.7) Urine Color Pale yellow Urine Appearance Clear Urine pH 6 (4.5-8.0) Urine Specific [place] 1.020 (1.005-1.035) Urine Protein 2+ (NEGATIVE) Urine Glucose (UA) 2+ (NEGATIVE) Urine Ketones Negative (NEGATIVE) Urine Blood 2+ (NEGATIVE) Urine Nitrite Negative (NEGATIVE) Urine Bilirubin Negative (NEGATIVE) Urine Urobilinogen Normal MG/DL (0.0-1.0) Urine Leukocyte Esterase 1+ (NEGATIVE) Urine RBC 2-4 /HPF (0 - 2) Urine WBC 2-4 /HPF (0 - 2) Urine Squamous Epithelial Cells Moderate /LPF (NONE/OCC) Urine Bacteria Few /HPF (NONE) Urine HCG, Qualitative Negative (NEGATIVE) Last Vital Signs Date Time Temp Pulse Resp B/P (MAP) Pulse Ox O2 Delivery O2 Flow Rate FiO2 12/22/18 22:25 98.4 98 18 162/101 95 Room Air Status: improved Disposition: HOME, SELF-CARE Condition: Stable Scripts Trimethoprim/Sulfamethoxazole 160/800* (BACTRIM DS TABLET*) 1 Each Tablet 1 TAB ORAL Q12H, #14 TAB 0 Refills Prov: Grady Olsen MD 12/23/18 Cephalexin* (KEFLEX*) 500 Mg Capsule 500 MG ORAL EVERY 6 HOURS, #28 CAP Prov: Grady Olsen MD 12/23/18 Grady Olsen MD Dec 22, 2018 22:53
[2018-12-22] MEDS ORDERED: cefTRIAXone 1 GM in NS 55 ML IVPB ONE (23:00)
[2018-12-22] MEDS ORDERED: HYDROcodone/Acetamin 5/325 tab ORAL ONE (23:00)
[2018-12-22 23:30] LABS: BASOPHILS % (AUTO) 1.5 % (0.0-2.0); HEMATOCRIT 44.4 % (37.0-47.0); HEMOGLOBIN 14.8 G/DL (12.0-16.0); LYMPHOCYTES % (AUTO) 25.9 % (20.0-45.0); MEAN CORPUSCULAR VOLUME 86 FL (80-99); MONOCYTES % (AUTO) 9.1 % (1.0-10.0); NEUTROPHILS % (AUTO) 61.6 % (45.0-75.0); PLATELET COUNT 376 K/UL (150-450); RED BLOOD COUNT 5.14 M/UL (4.20-5.40); RED CELL DISTRIBUTION WIDTH 12.9 % (11.6-14.8); WHITE BLOOD COUNT 9.1 K/UL (4.8-10.8)
[2018-12-22 23:33] LABS: ANION GAP 6 mmol/L (5-15); BLOOD UREA NITROGEN 9 mg/dL (7-18); CARBON DIOXIDE 28 MMOL/L (21-32); CHLORIDE 104 MMOL/L (98-107); CREATININE 0.6 MG/DL (0.55-1.30); POTASSIUM 3.4 MMOL/L (3.5-5.1); SODIUM 138 MMOL/L (136-145)
[2018-12-22 23:38] LABS: ALANINE AMINOTRANSFERASE 47 U/L (12-78); ALBUMIN 3.2 G/DL (3.4-5.0); ALBUMIN/GLOBULIN RATIO 0.8 (1.0-2.7); ALKALINE PHOSPHATASE 142 U/L (46-116); ASPARTATE AMINO TRANSFERASE 27 U/L (15-37); BILIRUBIN,TOTAL 0.4 MG/DL (0.2-1.0)
[2018-12-22 23:55] LABS: APPEARANCE,URINE CLEAR; BILIRUBIN, URINE NEGATIVE (NEGATIVE); COLOR,URINE PALE YELLOW; GLUCOSE, URINE (UA) 2+ (NEGATIVE); KETONES,URINE NEGATIVE (NEGATIVE); LEUKOCYTE ESTERASE ,URINE 1+ (NEGATIVE); NITRITE,URINE NEGATIVE (NEGATIVE); PH,URINE 6 (4.5-8.0); PROTEIN,URINE 2+ (NEGATIVE); UROBILINOGEN,URINE NORMAL MG/DL (0.0-1.0)
[2018-12-23 00:11] VITALS: BP 155/99
[2018-12-23] MEDS ORDERED: CEPHALEXIN500 MG ORAL (00:20)
[2018-12-23] MEDS ORDERED: BACTRIM DS TAB1 EAC1 ORAL (00:20)
--- NOTE | 2018-12-23 00:22 | NUR ---
ED Nurse Note: per shawna verbal order pull lidocaine with epi.
[2018-12-23] MEDS ORDERED: Lidocaine 1% 10mg/ml/EPI 0.01mg/ml 20ml INJ ONE (00:45)
[2018-12-23 00:53] VITALS: BP 145/94
--- NOTE | 2018-12-23 00:54 | NUR ---
ER DISCHARGE NOTE: Patient is cleared to be discharged per ERMD, pt is aox4, on room air, with stable vital signs. pt was given dc and prescription instructions, pt was able to verbalize understanding, pt id band and iv site removed without complications. pt is able to ambulate with steady gait. pt took all belongings.
== END 2018-12-23 00:54 | disposition home or self-care (01) ==
LOC: EMR 22:54
DX: L02.211 Cutaneous abscess of abdominal wall (principal); L03.311 Cellulitis of abdominal wall; I10 Essential (primary) hypertension; E78.00 Pure hypercholesterolemia, unspecified
CPT/HCPCS: 10060; 36415; 80053; 81001; 81025; 85025; 96365; 99284; J0696; Z7502